=== PATIENT | female | born 1965 | race Caucasian/White ===

== ENCOUNTER 2016-09-19 08:32 | Emergency (ER) | payer BC, OTHER ==
[~2016-09-19] VITALS: Ht 162.6 cm; Wt 68.2 kg
[~2016-09-19 08:32] MED LIST: HYDR1TAB12 PO; METH500T97 PO; MONT4GRA PO; ONDA4TAB10 PO; PROM25SU34 RC; SERT100T5 PO; TOPI25CA5 PO; [UNRECOGNIZED DRUG - OTHER]
[2016-09-19] MEDS ORDERED: SODIUM CHLORIDE 0.9% 1,000 ML IV ONE (08:34)
[2016-09-19] MEDS ORDERED: LORazepam 2 MG/ML, 1ML ONE (08:53)
[2016-09-19] MEDS ORDERED: ONDANSETRON 2MG/ML, 2ML ONE (08:53)
[2016-09-19] MEDS ORDERED: MORPHINE SULFATE 4 MG/ML, 1ML ONE ×2 (08:53→11:14)
[2016-09-19] MEDS ORDERED: SODIUM CHLORIDE FLUSH 10ML SYR IVF ONE (09:00)
[2016-09-19] MEDS ORDERED: LORazepam 2 MG/ML, 1ML IVPush ONE (09:00)
[2016-09-19] MEDS ORDERED: SODIUM CHLORIDE 0.9% 1,000ML IVBOLUS ONE ×3 (09:00→11:30)
[2016-09-19] MEDS ORDERED: ONDANSETRON 2MG/ML, 2ML IVPush ONE (09:00)
[2016-09-19] MEDS: MORPHINE SULFATE 4 MG/ML, 1ML IVPush PRN ×2 (09:13→11:23)
[2016-09-19] MEDS ORDERED: PROMETHAZINE 25 MG/ML, 1ML IM ONE (11:00)
[2016-09-19] MEDS ORDERED: MORPHINE SULFATE 4 MG/ML, 1ML IVPush PRN (11:00)
[2016-09-19] MEDS ORDERED: POTASSIUM CHLORIDE 20 MEQ TAB.ER.PRT PO ONE (11:00)
[2016-09-19] MEDS ORDERED: POTASSIUM CHLORIDE 20 MEQ TAB.ER.PRT ONE (11:14)
[2016-09-19] MEDS ORDERED: DIPHENHYDRAMINE 50 MG/ML, 1ML ONE (11:20)
[2016-09-19] MEDS ORDERED: DIPHENHYDRAMINE 50 MG/ML, 1ML IVPush ONE (11:30)
[2016-09-19 13:00] VITALS: BP 128/81
== END 2016-09-19 13:02 | disposition home or self-care (01) ==
LOC: ED 10:42
DX: G43.001 Migraine without aura, not intractable, with status migrainosus (principal); R11.2 Nausea with vomiting, unspecified; Z90.710 Acquired absence of both cervix and uterus
CPT/HCPCS: 96361; 96374; 96375; 96376; 99284; J1200; J2060; J2405; J7030

== ENCOUNTER 2017-03-04 03:36 | Emergency (ER) | payer BC ==
[~2017-03-04] VITALS: Ht 162.6 cm; Wt 68.7 kg
[2017-03-04] MEDS ORDERED: KETOROLAC 30 MG/1 ML IVPush ONE (04:00)
[2017-03-04] MEDS ORDERED: PROMETHAZINE 25 MG/ML, 1ML IM ONE (04:00)
[2017-03-04] MEDS ORDERED: SODIUM CHLORIDE FLUSH 10ML SYR IVF ONE (04:00)
[2017-03-04] MEDS ORDERED: ONDANSETRON 2MG/ML, 2ML IVPush ONE (04:00)
[2017-03-04] MEDS ORDERED: KETOROLAC 30 MG/1 ML ONE (04:00)
[2017-03-04] MEDS ORDERED: PROMETHAZINE 25 MG/ML, 1ML ONE (04:00)
[2017-03-04] MEDS ORDERED: SODIUM CHLORIDE 0.9% 1,000ML IVBOLUS ONE (04:00)
[2017-03-04] MEDS ORDERED: MORPHINE SULFATE 4 MG/ML, 1ML ONE (04:00)
[2017-03-04] MEDS ORDERED: MORPHINE SULFATE 4 MG/ML, 1ML IVPush PRN (04:00)
[2017-03-04] MEDS ORDERED: ONDANSETRON 2MG/ML, 2ML ONE (04:00)
[2017-03-04 04:32] LABS: HEMATOCRIT 45.7 % (34.6-47.8); HEMOGLOBIN 15.5 g/dL (11.7-16.4); WHITE BLOOD COUNT 11.1 x10^3/uL (3.4-10)
[2017-03-04 04:40] LABS: ASPARTATE AMINO TRANSFERASE 14 U/L (15-37); BLOOD UREA NITROGEN 15 mg/dL (7-18)
[2017-03-04] MEDS ORDERED: OMNIPAQUE 350 MG/ML, 100ML BOTTLE ONE (05:41)
[2017-03-04 05:50] VITALS: BP 101/76
== END 2017-03-04 06:08 | disposition home or self-care (01) ==
LOC: ED 05:15
DX: R10.84 Generalized abdominal pain (principal); R11.2 Nausea with vomiting, unspecified; Z90.49 Acquired absence of other specified parts of digestive tract
CPT/HCPCS: 36415; 74177; 80053; 81001; 83690; 84703; 85025; 87086; 96361; 96372; 96374; 96375; 99285; J1885; J2405; J2550; J7030; Q9967

== ENCOUNTER 2017-03-15 14:45 | Emergency (ER) | payer BC ==
[~2017-03-15] VITALS: Ht 162.6 cm; Wt 68.5 kg
[2017-03-15] MEDS ORDERED: SODIUM CHLORIDE FLUSH 10ML SYR IVF ONE (15:30)
[2017-03-15] MEDS ORDERED: SODIUM CHLORIDE 0.9% 1,000ML IVBOLUS ONE ×2 (15:30→18:30)
[2017-03-15] MEDS ORDERED: DIPHENHYDRAMINE 50 MG/ML, 1ML IVPush ONE (15:30)
[2017-03-15] MEDS ORDERED: KETOROLAC 30 MG/1 ML IVPush ONE (15:30)
[2017-03-15] MEDS ORDERED: PROCHLORPERAZINE 5 MG/ML, 2ML IVPush ONE (15:30)
[2017-03-15] MEDS ORDERED: ONDANSETRON 2MG/ML, 2ML IVPush ONE (15:30)
[2017-03-15] MEDS ORDERED: ONDANSETRON 2MG/ML, 2ML ONE (15:46)
[2017-03-15] MEDS ORDERED: MORPHINE SULFATE 4 MG/ML, 1ML ONE ×2 (15:46→17:00)
[2017-03-15] MEDS ORDERED: LORazepam 2 MG/ML, 1ML ONE (15:47)
[2017-03-15] MEDS: MORPHINE SULFATE 4 MG/ML, 1ML IVPush PRN ×2 (15:55→17:07)
[2017-03-15] MEDS ORDERED: LORazepam 2 MG/ML, 1ML IVPush ONE (16:00)
[2017-03-15 16:01] LABS: HEMATOCRIT 42.4 % (34.6-47.8); HEMOGLOBIN 14.3 g/dL (11.7-16.4); WHITE BLOOD COUNT 13.5 x10^3/uL (3.4-10)
[2017-03-15 16:05] LABS: BLOOD UREA NITROGEN 10 mg/dL (7-18)
[2017-03-15] MEDS ORDERED: METHOCARBAMOL 750 MG TABLET ONE (16:40)
[2017-03-15] MEDS ORDERED: METHOCARBAMOL 750 MG TABLET PO ONE (17:00)
[2017-03-15 20:19] VITALS: BP 131/86
[2017-03-16] MEDS ORDERED: TRAM50TA2 PO (00:49)
[2017-03-16] MEDS ORDERED: FIORICET PO (00:49)
[2017-03-16] MEDS ORDERED: TOPI50TA35 PO (00:49)
[2017-03-16] MEDS ORDERED: ACYC-57 PO (00:49)
[2017-03-16] MEDS ORDERED: ALPR1TAB2 PO (00:49)
[2017-03-16] MEDS ORDERED: METH750T87 PO (00:49)
[2017-03-16] MEDS ORDERED: MORP15TA3 PO (00:49)
[2017-03-16] MEDS ORDERED: SERT100T5 PO (00:49)
[2017-03-16] MEDS ORDERED: MONT10TA6 PO (00:49)
[2017-03-16] MEDS ORDERED: LEVO5TAB29 PO (00:49)
[2017-03-16] MEDS ORDERED: PROM25SU34 RC (00:49)
[2017-03-16] MEDS ORDERED: RIZA10TA20 PO (00:49)
[2017-03-16] MEDS ORDERED: HYDR1TAB12 PO (00:49)
[2017-03-16] MEDS ORDERED: GABA300C10 PO (00:49)
== END 2017-03-15 20:21 | disposition home or self-care (01) ==
LOC: ED 17:15
DX: G43.909 Migraine, unspecified, not intractable, without status migrainosus (principal); Z90.710 Acquired absence of both cervix and uterus
CPT/HCPCS: 36415; 80048; 82040; 85025; 96361; 96374; 96375; 96376; 99285; J2060; J2405; J7030

== ENCOUNTER 2017-03-15 23:40 | Emergency (ER) | payer BC ==
[~2017-03-15] VITALS: Ht 162.6 cm; Wt 68.5 kg
[2017-03-16] MEDS ORDERED: TRAM50TA2 PO (00:49)
[2017-03-16] MEDS ORDERED: PROM25SU34 RC (00:49)
[2017-03-16] MEDS ORDERED: MORP15TA3 PO (00:49)
[2017-03-16] MEDS ORDERED: ALPR1TAB2 PO (00:49)
[2017-03-16] MEDS ORDERED: ACYC-57 PO (00:49)
[2017-03-16] MEDS ORDERED: FIORICET PO (00:49)
[2017-03-16] MEDS ORDERED: METH750T87 PO (00:49)
[2017-03-16] MEDS ORDERED: SERT100T5 PO (00:49)
[2017-03-16] MEDS ORDERED: RIZA10TA20 PO (00:49)
[2017-03-16] MEDS ORDERED: LEVO5TAB29 PO (00:49)
[2017-03-16] MEDS ORDERED: MONT10TA6 PO (00:49)
[2017-03-16] MEDS ORDERED: GABA300C10 PO (00:49)
[2017-03-16] MEDS ORDERED: HYDR1TAB12 PO (00:49)
[2017-03-16] MEDS ORDERED: TOPI50TA35 PO (00:49)
[2017-03-16] MEDS ORDERED: SODIUM CHLORIDE FLUSH 10ML SYR IVF ONE (01:00)
[2017-03-16] MEDS ORDERED: MORPHINE SULFATE 4 MG/ML, 1ML IVPush ONE ×2 (01:00→01:30)
[2017-03-16] MEDS ORDERED: METOCLOPRAMIDE 5 MG/ML, 2ML IVPush ONE (01:00)
[2017-03-16] MEDS ORDERED: DIPHENHYDRAMINE 50 MG/ML, 1ML IVPush ONE (01:00)
[2017-03-16] MEDS ORDERED: SODIUM CHLORIDE 0.9% 1,000ML IVBOLUS ONE (01:00)
[2017-03-16] MEDS ORDERED: DEXAMETHASONE 4 MG/ML, 1ML IVPush ONE (01:00)
[2017-03-16] MEDS ORDERED: MORPHINE SULFATE 4 MG/ML, 1ML ONE (01:08)
[2017-03-16] MEDS ORDERED: METOCLOPRAMIDE 5 MG/ML, 2ML ONE (01:08)
[2017-03-16] MEDS ORDERED: DEXAMETHASONE 4 MG/ML, 1ML ONE (01:08)
[2017-03-16] MEDS ORDERED: DIPHENHYDRAMINE 50 MG/ML, 1ML ONE (01:08)
[2017-03-16] MEDS ORDERED: MAGNESIUM SULFATE PMX 2GM/50ML 50 ML IV ONE (01:30)
[2017-03-16 04:20] VITALS: BP 132/85
== END 2017-03-16 04:22 | disposition home or self-care (01) ==
LOC: ED 03-16 01:36
DX: G43.909 Migraine, unspecified, not intractable, without status migrainosus (principal); M79.7 Fibromyalgia; Z90.710 Acquired absence of both cervix and uterus
CPT/HCPCS: 96365; 96375; 99284; J1100; J1200; J2765; J3475; J7030